=== PATIENT | male | born 1960 | race Caucasian/White ===

== ENCOUNTER 2021-04-22 12:50 | Inpatient (IN) ==
[2021-04-22] MEDS ORDERED: 0.9 % Sodium Chloride 1,000 ML IVC ONE (13:01)
[2021-04-22] MEDS ORDERED: Isovue-370 500 ML BOTTLE IVP ONE (13:03)
[2021-04-22] MEDS ORDERED: *HR* HYDROmorphone (PF) 1 MG/ML SYRINGE IVP ONE ×2 (13:03→15:14)
[2021-04-22] MEDS ORDERED: Ondansetron 4 MG/2 ML VIAL IVP ONE (13:03)
[2021-04-22 13:18] LABS: Basophils % 0.2 %; Eosinophils % 0.2 %; Hematocrit 45.9 % (37.5-50.1); Immature Granulocytes % 0.3 % (0-4); Lymphocytes # 1.3 K/mcL (0.6-4.6); Lymphocytes % 6.6 %; Mean Corpuscular HGB Conc 32.7 g/dL (31.6-35.5); Mean Corpuscular Hemoglobin 30.7 pg (28.0-33.3); Mean Corpuscular Volume 94.1 fL (83.0-100.0); Mean Platelet Volume 10.1 fL (9.4-12.4); Monocytes # 0.8 K/mcL (0.0-1.3); Monocytes % 4.2 %; Neutrophils # 17.4 K/mcL (1.6-8.9); Platelet Count 338 K/mcL (140-400); Red Blood Count 4.88 M/mcL (4.19-5.50); Red Cell Distribution Width 13.9 % (11.5-14.5); Segmented Neutrophils % 88.5 %; White Blood Count 19.6 K/mcL (4.3-11.1)
[2021-04-22 13:26] LABS: Prothrombin Time 11.5 Seconds (9.4-12.1)
[2021-04-22 13:28] LABS: Activated Partial Thrombo Time 32.5 Seconds (26.0-36.0)
[2021-04-22 14:14] LABS: Alanine Aminotransferase 414 Units/L (7-52); Albumin 4.4 g/dL (3.5-5.7); Albumin/Globulin Ratio 1.2 (1.1-2.2); Alkaline Phosphatase 185 Units/L (34-104); Aspartate Amino Transferase 406 Units/L (13-39); BUN/Creatinine Ratio 13 (6-26); Bilirubin,Direct 1.6 mg/dL (0.0-0.2); Bilirubin,Indirect 0.7 mg/dL (0.0-1.0); Bilirubin,Total 2.3 mg/dL (0.3-1.0); Blood Urea Nitrogen 13 mg/dL (8-23); Calcium 9.7 mg/dL (8.6-10.3); Carbon Dioxide 30 mEq/L (23-29); Chloride 95 mEq/L (98-107); Globulin 3.6 g/dL (2.4-3.5); Glucose 176 mg/dL (70-105); Lipase > 1800 Units/L (11-82); Osmolality,Calculated 286 (280-300); Potassium 3.8 mEq/L (3.5-5.1); Sodium 136 mEq/L (136-145); Troponin I < 0.03 ng/mL (< 0.04); eGFR For African Americans > 60 (> 60); eGFR For Non-African Americans > 60 (> 60)
[2021-04-22] MEDS ORDERED: 0.9 % Sodium Chloride 1,000 ML IV ONE (14:32)
[2021-04-22] MEDS ORDERED: Naloxone 0.4 MG/ML INJ IVP PRN (15:25)
[2021-04-22] MEDS: Piperacillin/Tazobactam 3.375 GM in 0.9 % Sodium Chloride Mini Bag 100 ML IVPB SCH ×2 (16:12→19:31)
[2021-04-22 16:50] LABS: Amorphous Sediment,Urine Moderate per hpf (None-Few); Bacteria,Urine Few per hpf (None-Few); Bilirubin,Urine Negative (Negative); Blood,Urine Negative (Negative); Clarity,Urine Turbid (Clear); Color,Urine Yellow (Yellow); Glucose,Urine (UA) Normal (Normal); Ketones,Urine Negative (Negative); Leukocyte Esterase,Urine Negative (Negative); Mucus,Urine Few per lpf (None-Few); Nitrite,Urine Negative (Negative); PH,Urine 7.5 pH Units (5.0-8.0); Protein,Urine Trace mg/dL (Neg-Trace); RBC,Urine 0-3 per hpf (0-3); Specific Gravity,Urine > 1.030 (1.010-1.025); Urobilinogen,Urine Normal (Normal); WBC,Urine 0-3 per hpf (0-3)
[2021-04-22] MEDS: Ringers Solution, Lactated 1,000 ML IVC SCH ×2 (19:30→19:38)
[2021-04-22] MEDS: *HR* HYDROmorphone (PF) 1 MG/ML SYRINGE IVP PRN (19:37)
[2021-04-22] MEDS ORDERED: Ibuprofen 400 MG TABLET PO ONE (21:26)
[2021-04-22] MEDS ORDERED: *HR* OxyCODONE Oral Soln 5 MG/5 ML UD.LIQ GTUBE ONE (21:51)
[2021-04-23] MEDS: Piperacillin/Tazobactam 3.375 GM in 0.9 % Sodium Chloride Mini Bag 100 ML IVPB SCH ×4 (00:02→23:39)
[2021-04-23] MEDS: *HR* HYDROmorphone (PF) 1 MG/ML SYRINGE IVP PRN ×4 (00:16→20:06)
[2021-04-23 03:44] LABS: Basophils % 0.1 %; Hematocrit 39.8 % (37.5-50.1); Immature Granulocytes % 0.5 % (0-4); Lymphocytes # 0.5 K/mcL (0.6-4.6); Lymphocytes % 2.8 %; Mean Corpuscular HGB Conc 33.4 g/dL (31.6-35.5); Mean Corpuscular Hemoglobin 30.8 pg (28.0-33.3); Mean Corpuscular Volume 92.1 fL (83.0-100.0); Mean Platelet Volume 10.5 fL (9.4-12.4); Monocytes # 0.7 K/mcL (0.0-1.3); Monocytes % 3.5 %; Neutrophils # 17.4 K/mcL (1.6-8.9); Platelet Count 269 K/mcL (140-400); Red Blood Count 4.32 M/mcL (4.19-5.50); Red Cell Distribution Width 14.1 % (11.5-14.5); Segmented Neutrophils % 93.1 %; White Blood Count 18.7 K/mcL (4.3-11.1)
[2021-04-23 03:46] LABS: Hemoglobin 13.3 g/dL (12.9-16.9)
[2021-04-23 03:56] LABS: INR 1.1; Prothrombin Time 12.1 Seconds (9.4-12.1)
[2021-04-23 04:01] LABS: Alanine Aminotransferase 287 Units/L (7-52); Albumin 3.9 g/dL (3.5-5.7); Albumin/Globulin Ratio 1.3 (1.1-2.2); Alkaline Phosphatase 138 Units/L (34-104); Aspartate Amino Transferase 183 Units/L (13-39); BUN/Creatinine Ratio 15 (6-26); Bilirubin,Total 0.9 mg/dL (0.3-1.0); Blood Urea Nitrogen 12 mg/dL (8-23); Calcium 8.4 mg/dL (8.6-10.3); Carbon Dioxide 24 mEq/L (23-29); Chloride 102 mEq/L (98-107); Globulin 2.9 g/dL (2.4-3.5); Glucose 140 mg/dL (70-105); Osmolality,Calculated 284 (280-300); Potassium 3.6 mEq/L (3.5-5.1); Sodium 136 mEq/L (136-145); Total Protein 6.8 g/dL (6.4-8.9); eGFR For African Americans > 60 (> 60); eGFR For Non-African Americans > 60 (> 60)
[2021-04-23] MEDS: *HR* Enoxaparin 40 MG/0.4 ML SYRINGE SQ SCH (05:05)
[2021-04-23] MEDS ORDERED: *HR* OxyCODONE Oral Soln 5 MG/5 ML UD.LIQ GTUBE PRN ×2 (07:30→13:24)
[2021-04-23] MEDS ORDERED: *HR* HYDROmorphone (PF) 1 MG/ML SYRINGE IVP ONE (07:30)
[2021-04-23] MEDS ORDERED: Ringers Solution, Lactated 1,000 ML IVC SCH (11:38)
[2021-04-23] MEDS: Ringers Solution, Lactated 1,000 ML IVC SCH ×2 (11:40→11:41)
[2021-04-23] MEDS ORDERED: *HR* LORazepam 2 MG/ML VIAL IVP ONE (13:22)
[2021-04-23] MEDS: 0.9 % Sodium Chloride 1,000 ML IVC SCH ×2 (16:26→23:20)
[2021-04-23] MEDS: Ondansetron 4 MG/2 ML VIAL IVP PRN (20:19)
[2021-04-23] MEDS: *HR* HYDROmorphone 2 MG/ML SYRINGE IVP PRN (23:32)
[2021-04-24] MEDS: *HR* HYDROmorphone 2 MG/ML SYRINGE IVP PRN ×8 (01:34→23:19)
[2021-04-24] MEDS ORDERED: Morphine Sulfate 2 MG/ML SYRINGE IVP ONE (03:50)
[2021-04-24] MEDS: 0.9 % Sodium Chloride 1,000 ML IVC SCH ×4 (04:04→21:10)
[2021-04-24] MEDS: *HR* Enoxaparin 40 MG/0.4 ML SYRINGE SQ SCH (05:24)
[2021-04-24 07:35] LABS: Basophils % 0.1 %; Hematocrit 37.5 % (37.5-50.1); Hemoglobin 12.3 g/dL (12.9-16.9); Immature Granulocytes % 0.6 % (0-4); Lymphocytes # 0.9 K/mcL (0.6-4.6); Lymphocytes % 3.5 %; Mean Corpuscular HGB Conc 32.8 g/dL (31.6-35.5); Mean Corpuscular Hemoglobin 30.5 pg (28.0-33.3); Mean Corpuscular Volume 93.1 fL (83.0-100.0); Mean Platelet Volume 10.6 fL (9.4-12.4); Monocytes % 5.4 %; Neutrophils # 22.6 K/mcL (1.6-8.9); Platelet Count 276 K/mcL (140-400); Red Blood Count 4.03 M/mcL (4.19-5.50); Red Cell Distribution Width 14.8 % (11.5-14.5); Segmented Neutrophils % 90.4 %
[2021-04-24 07:51] LABS: Monocytes # 1.4 K/mcL (0.0-1.3)
[2021-04-24 08:11] LABS: Alanine Aminotransferase 204 Units/L (7-52); Albumin 3.6 g/dL (3.5-5.7); Albumin/Globulin Ratio 1.2 (1.1-2.2); Alkaline Phosphatase 113 Units/L (34-104); Aspartate Amino Transferase 108 Units/L (13-39); BUN/Creatinine Ratio 20 (6-26); Blood Urea Nitrogen 13 mg/dL (8-23); Calcium 7.3 mg/dL (8.6-10.3); Carbon Dioxide 20 mEq/L (23-29); Chloride 104 mEq/L (98-107); Glucose 106 mg/dL (70-105); Lipase 165 Units/L (11-82); Osmolality,Calculated 281 (280-300); Potassium 3.3 mEq/L (3.5-5.1); Sodium 135 mEq/L (136-145); Total Protein 6.6 g/dL (6.4-8.9); eGFR For African Americans > 60 (> 60); eGFR For Non-African Americans > 60 (> 60)
[2021-04-24] MEDS: Piperacillin/Tazobactam 3.375 GM in 0.9 % Sodium Chloride Mini Bag 100 ML IVPB SCH ×3 (08:24→23:23)
[2021-04-24 08:28] LABS: Platelet Estimate Normal (Normal)
[2021-04-24] MEDS: Ondansetron 4 MG/2 ML VIAL IVP PRN (08:36)
[2021-04-24] MEDS: Levothyroxine Sodium 100 MCG VIAL IVP SCH (08:45)
[2021-04-24] MEDS: *HR* LORazepam 2 MG/ML VIAL IVP SCH ×3 (12:36→23:22)
[2021-04-25] MEDS: *HR* HYDROmorphone 2 MG/ML SYRINGE IVP PRN ×7 (01:21→20:13)
[2021-04-25] MEDS: 0.9 % Sodium Chloride 1,000 ML IVC SCH ×4 (01:21→16:51)
[2021-04-25 02:56] LABS: Basophils % 0.1 %
[2021-04-25 02:58] LABS: Hemoglobin 12.1 g/dL (12.9-16.9); Lymphocytes # 0.9 K/mcL (0.6-4.6); Lymphocytes % 3.4 %; Mean Corpuscular HGB Conc 34.6 g/dL (31.6-35.5); Mean Corpuscular Hemoglobin 31.6 pg (28.0-33.3); Mean Corpuscular Volume 91.4 fL (83.0-100.0); Mean Platelet Volume 10.3 fL (9.4-12.4); Monocytes # 1.5 K/mcL (0.0-1.3); Monocytes % 5.7 %; Neutrophils # 23.5 K/mcL (1.6-8.9); Platelet Count 258 K/mcL (140-400); Red Blood Count 3.83 M/mcL (4.19-5.50); Red Cell Distribution Width 14.6 % (11.5-14.5); Segmented Neutrophils % 89.8 %; White Blood Count 26.2 K/mcL (4.3-11.1)
[2021-04-25 03:04] LABS: Alanine Aminotransferase 156 Units/L (7-52); Albumin 3.4 g/dL (3.5-5.7); Albumin/Globulin Ratio 1.2 (1.1-2.2); Alkaline Phosphatase 98 Units/L (34-104); Aspartate Amino Transferase 73 Units/L (13-39); Bilirubin,Total 1.1 mg/dL (0.3-1.0); Blood Urea Nitrogen 9 mg/dL (8-23); Calcium 6.8 mg/dL (8.6-10.3); Carbon Dioxide 21 mEq/L (23-29); Chloride 101 mEq/L (98-107); Globulin 2.8 g/dL (2.4-3.5); Glucose 102 mg/dL (70-105); Osmolality,Calculated 277 (280-300); Potassium 2.8 mEq/L (3.5-5.1); Sodium 134 mEq/L (136-145); Total Protein 6.2 g/dL (6.4-8.9)
[2021-04-25 03:53] LABS: Platelet Estimate Normal (Normal)
[2021-04-25 04:10] LABS: BUN/Creatinine Ratio 17 (6-26); eGFR For African Americans > 60 (> 60); eGFR For Non-African Americans > 60 (> 60)
[2021-04-25] MEDS: *HR* LORazepam 2 MG/ML VIAL IVP SCH ×3 (06:05→19:25)
[2021-04-25] MEDS: *HR* Enoxaparin 40 MG/0.4 ML SYRINGE SQ SCH (06:39)
[2021-04-25] MEDS: Piperacillin/Tazobactam 3.375 GM in 0.9 % Sodium Chloride Mini Bag 100 ML IVPB SCH ×2 (11:35→16:53)
[2021-04-25] MEDS: Levothyroxine Sodium 100 MCG VIAL IVP SCH (11:35)
[2021-04-25] MEDS: Ondansetron 4 MG/2 ML VIAL IVP PRN (13:25)
[2021-04-25] MEDS: Potassium Chloride Elixir 20 MEQ/15 ML UDC GTUBE SCH ×3 (16:53→19:34)
[2021-04-25 21:19] LABS: Hematocrit 36.7 % (37.5-50.1); Hemoglobin 12.3 g/dL (12.9-16.9)
[2021-04-25] MEDS: Morphine Sulfate 2 MG/ML SYRINGE IVP PRN (22:48)
[2021-04-26] MEDS: Piperacillin/Tazobactam 3.375 GM in 0.9 % Sodium Chloride Mini Bag 100 ML IVPB SCH ×4 (00:06→23:28)
[2021-04-26] MEDS: Morphine Sulfate 2 MG/ML SYRINGE IVP PRN ×5 (01:04→20:01)
[2021-04-26] MEDS: *HR* LORazepam 2 MG/ML VIAL IVP SCH ×5 (01:05→23:28)
[2021-04-26] MEDS: Pantoprazole 40 MG in 0.9 % Sodium Chloride Mini Bag 100 ML IVC SCH ×6 (03:29→20:00)
[2021-04-26 05:19] LABS: Red Cell Distribution Width 14.2 % (11.5-14.5)
[2021-04-26 05:21] LABS: Basophils % 0.1 %; Hematocrit 34.8 % (37.5-50.1); Hemoglobin 11.7 g/dL (12.9-16.9); Immature Granulocytes % 1.1 % (0-4); Lymphocytes # 0.9 K/mcL (0.6-4.6); Lymphocytes % 3.2 %; Mean Corpuscular HGB Conc 33.6 g/dL (31.6-35.5); Mean Corpuscular Hemoglobin 30.5 pg (28.0-33.3); Mean Corpuscular Volume 90.9 fL (83.0-100.0); Mean Platelet Volume 9.9 fL (9.4-12.4); Monocytes # 2.2 K/mcL (0.0-1.3); Monocytes % 7.6 %; Neutrophils # 25.1 K/mcL (1.6-8.9); Platelet Count 283 K/mcL (140-400); Red Blood Count 3.83 M/mcL (4.19-5.50); White Blood Count 28.5 K/mcL (4.3-11.1)
[2021-04-26 05:31] LABS: Platelet Estimate Normal (Normal)
[2021-04-26 05:53] LABS: Alanine Aminotransferase 117 Units/L (7-52); Albumin 3.1 g/dL (3.5-5.7); Albumin/Globulin Ratio 1.1 (1.1-2.2); Alkaline Phosphatase 88 Units/L (34-104); Aspartate Amino Transferase 56 Units/L (13-39); BUN/Creatinine Ratio 19 (6-26); Bilirubin,Total 1.1 mg/dL (0.3-1.0); Blood Urea Nitrogen 15 mg/dL (8-23); Calcium 6.6 mg/dL (8.6-10.3); Carbon Dioxide 23 mEq/L (23-29); Chloride 101 mEq/L (98-107); Globulin 2.8 g/dL (2.4-3.5); Glucose 134 mg/dL (70-105); Lipase 25 Units/L (11-82); Osmolality,Calculated 287 (280-300); Potassium 2.4 mEq/L (3.5-5.1); Sodium 137 mEq/L (136-145); Total Protein 5.9 g/dL (6.4-8.9); eGFR For African Americans > 60 (> 60); eGFR For Non-African Americans > 60 (> 60)
[2021-04-26] MEDS: *HR* Enoxaparin 40 MG/0.4 ML SYRINGE SQ SCH (06:12)
[2021-04-26] MEDS: *HR* OxyCODONE Oral Soln 5 MG/5 ML UD.LIQ PO PRN ×2 (08:41→13:36)
[2021-04-26] MEDS: Levothyroxine Sodium 100 MCG VIAL IVP SCH (08:42)
[2021-04-26] MEDS ORDERED: *HR* LORazepam 2 MG/ML VIAL IVP ONE (10:28)
[2021-04-26] MEDS ORDERED: 0.9 % Sodium Chloride 1,000 ML IV ONE ×2 (10:32→12:18)
[2021-04-26] MEDS ORDERED: Isovue-370 500 ML BOTTLE IVP ONE (10:48)
[2021-04-26 11:22] LABS: Basophils % 0.1 %; Immature Granulocytes % 1.1 % (0-4); Lymphocytes % 4.2 %
[2021-04-26 11:24] LABS: Hematocrit 28.6 % (37.5-50.1); Hemoglobin 9.5 g/dL (12.9-16.9); Lymphocytes # 1.1 K/mcL (0.6-4.6); Mean Corpuscular HGB Conc 33.2 g/dL (31.6-35.5); Mean Corpuscular Hemoglobin 31.3 pg (28.0-33.3); Mean Corpuscular Volume 94.1 fL (83.0-100.0); Mean Platelet Volume 10.4 fL (9.4-12.4); Monocytes # 2.5 K/mcL (0.0-1.3); Monocytes % 9.1 %; Neutrophils # 23.1 K/mcL (1.6-8.9); Nucleated Red Blood Cells 0.1 /100 WBC (0); Platelet Count 279 K/mcL (140-400); Red Blood Count 3.04 M/mcL (4.19-5.50); Red Cell Distribution Width 14.5 % (11.5-14.5); Segmented Neutrophils % 85.5 %
[2021-04-26] MEDS ORDERED: Potassium Effervescent 25 MEQ TABLET.EFF GTUBE ONE (11:30)
[2021-04-26 12:08] LABS: Platelet Estimate Normal (Normal)
[2021-04-26 13:56] LABS: Hematocrit 25.9 % (37.5-50.1); Hemoglobin 8.7 g/dL (12.9-16.9)
[2021-04-26] MEDS: Ringers Solution, Lactated 1,000 ML IVC SCH ×3 (14:44→20:10)
[2021-04-26] MEDS ORDERED: Magic Mouthwash 10 ML UD Cup PO PRN (21:19)
[2021-04-26] MEDS: Ondansetron 4 MG/2 ML VIAL IVP PRN (21:40)
[2021-04-27 00:48] LABS: Basophils % 0.1 %; Hemoglobin 8.1 g/dL (12.9-16.9); Immature Granulocytes % 0.5 % (0-4); Lymphocytes # 0.8 K/mcL (0.6-4.6); Lymphocytes % 4.9 %; Mean Corpuscular HGB Conc 35.2 g/dL (31.6-35.5); Mean Corpuscular Hemoglobin 32.1 pg (28.0-33.3); Mean Corpuscular Volume 91.3 fL (83.0-100.0); Mean Platelet Volume 10.3 fL (9.4-12.4); Monocytes # 1.6 K/mcL (0.0-1.3); Monocytes % 9.5 %; Neutrophils # 14.2 K/mcL (1.6-8.9); Platelet Count 226 K/mcL (140-400); Red Blood Count 2.52 M/mcL (4.19-5.50); Red Cell Distribution Width 14.3 % (11.5-14.5); White Blood Count 16.7 K/mcL (4.3-11.1)
[2021-04-27 01:07] LABS: BUN/Creatinine Ratio 43 (6-26); Blood Urea Nitrogen 36 mg/dL (8-23); Calcium 6.9 mg/dL (8.6-10.3); Carbon Dioxide 23 mEq/L (23-29); Chloride 113 mEq/L (98-107); Glucose 121 mg/dL (70-105); Lipase 22 Units/L (11-82); Osmolality,Calculated 308 (280-300); Potassium 2.9 mEq/L (3.5-5.1); Sodium 144 mEq/L (136-145); eGFR For African Americans > 60 (> 60); eGFR For Non-African Americans > 60 (> 60)
[2021-04-27] MEDS: Ringers Solution, Lactated 1,000 ML IVC SCH ×3 (01:26→18:57)
[2021-04-27] MEDS: Pantoprazole 40 MG in 0.9 % Sodium Chloride Mini Bag 100 ML IVC SCH ×5 (01:26→22:22)
[2021-04-27] MEDS ORDERED: Potassium Effervescent 25 MEQ TABLET.EFF GTUBE ONE ×2 (02:48→10:20)
[2021-04-27 05:30] LABS: Hematocrit 24.5 % (37.5-50.1)
[2021-04-27] MEDS: *HR* LORazepam 2 MG/ML VIAL IVP SCH ×5 (05:50→20:55)
[2021-04-27] MEDS: Piperacillin/Tazobactam 3.375 GM in 0.9 % Sodium Chloride Mini Bag 100 ML IVPB SCH ×2 (09:05→18:57)
[2021-04-27] MEDS: Levothyroxine Sodium 100 MCG VIAL IVP SCH (10:48)
[2021-04-27] MEDS ORDERED: *HR* Propofol 200 MG/20 ML VIAL IVP ONE (12:03)
[2021-04-27] MEDS ORDERED: *HR* Midazolam HCl 2 MG/2 ML VIAL ONE (12:03)
[2021-04-27] MEDS ORDERED: *HR* Succinylcholine 200 MG/10 ML VIAL IVP ONE (12:04)
[2021-04-27] MEDS ORDERED: Lidocaine/EPI 1:100k 1% 50 ML VIAL ONE (12:13)
[2021-04-27] MEDS ORDERED: Oxymetazoline Nasal Spray Bottle 30ML NS ONE (12:34)
[2021-04-27] MEDS ORDERED: Lidocaine -MPF 4% 5 ML AMPUL ONE (12:47)
[2021-04-27] MEDS ORDERED: Lidocaine -MPF 2% 5 ML VIAL ONE (13:00)
[2021-04-27] MEDS ORDERED: *HR* FentaNYL (PF) 100 MCG/2 ML VIAL ONE ×2 (13:12→14:05)
[2021-04-27] MEDS ORDERED: *HR* Rocuronium Bromide 50 MG/5 ML VIAL ONE (13:30)
[2021-04-27] MEDS ORDERED: Phentolamine Mesylate 5 MG VIAL IJ ONE (13:45)
[2021-04-27] MEDS ORDERED: Ondansetron 4 MG/2 ML VIAL ONE (14:11)
[2021-04-27] MEDS ORDERED: Sugammadex Sodium 200 MG/2 ML VIAL IV ONE (14:11)
[2021-04-27 16:26] LABS: Basophils % 0.1 %; Hematocrit 19.6 % (37.5-50.1); Hemoglobin 6.5 g/dL (12.9-16.9); Immature Granulocytes % 0.8 % (0-4); Lymphocytes # 0.7 K/mcL (0.6-4.6); Lymphocytes % 4.3 %; Mean Corpuscular HGB Conc 33.2 g/dL (31.6-35.5); Mean Corpuscular Volume 93.3 fL (83.0-100.0); Mean Platelet Volume 11.1 fL (9.4-12.4); Monocytes # 0.9 K/mcL (0.0-1.3); Monocytes % 5.5 %; Platelet Count 110 K/mcL (140-400); Red Cell Distribution Width 14.9 % (11.5-14.5); Segmented Neutrophils % 89.3 %; White Blood Count 16.8 K/mcL (4.3-11.1)
[2021-04-27 16:35] LABS: BUN/Creatinine Ratio 25 (6-26); Blood Urea Nitrogen 21 mg/dL (8-23); Calcium 6.7 mg/dL (8.6-10.3); Carbon Dioxide 26 mEq/L (23-29); Chloride 111 mEq/L (98-107); Glucose 109 mg/dL (70-105); Magnesium 1.5 mg/dL (1.6-2.6); Osmolality,Calculated 306 (280-300); Phosphorous 1.5 mg/dL (2.7-4.5); Sodium 146 mEq/L (136-145); Triglycerides 109 mg/dL (< 150); eGFR For African Americans > 60 (> 60); eGFR For Non-African Americans > 60 (> 60)
[2021-04-27 16:40] LABS: Troponin I 0.08 ng/mL (< 0.04)
[2021-04-27] MEDS ORDERED: methylPREDNISolone 125 MG/2 ML VIAL IVP ONE (19:40)
[2021-04-27] MEDS ORDERED: *HR* Metoprolol 5 MG/5 ML VIAL IVP ONE (19:42)
[2021-04-27] MEDS: Morphine Sulfate 2 MG/ML SYRINGE IVP PRN (19:47)
[2021-04-27 20:26] LABS: Mean Platelet Volume 10.2 fL (9.4-12.4)
[2021-04-27 20:28] LABS: Hematocrit 20.4 % (37.5-50.1); Mean Corpuscular HGB Conc 34.3 g/dL (31.6-35.5); Mean Corpuscular Volume 93.2 fL (83.0-100.0); Monocytes # 1.6 K/mcL (0.0-1.3); Nucleated Red Blood Cells 0.2 /100 WBC (0); Platelet Count 269 K/mcL (140-400); Red Blood Count 2.19 M/mcL (4.19-5.50); White Blood Count 26.4 K/mcL (4.3-11.1)
[2021-04-27 20:29] LABS: VBG HCO3 25 mEq/L (21-27); VBG PCO2 46 mmHg (41-51); VBG PH 7.35 pH Units (7.32-7.42); VBG PO2 171 mmHg (25-50)
[2021-04-27 20:44] LABS: Alanine Aminotransferase 83 Units/L (7-52); Albumin 2.8 g/dL (3.5-5.7); Albumin/Globulin Ratio 1.1 (1.1-2.2); Alkaline Phosphatase 73 Units/L (34-104); Aspartate Amino Transferase 68 Units/L (13-39); BUN/Creatinine Ratio 25 (6-26); Bilirubin,Total 0.6 mg/dL (0.3-1.0); Blood Urea Nitrogen 20 mg/dL (8-23); Calcium 6.9 mg/dL (8.6-10.3); Carbon Dioxide 27 mEq/L (23-29); Chloride 111 mEq/L (98-107); Globulin 2.5 g/dL (2.4-3.5); Glucose 132 mg/dL (70-105); Magnesium 1.6 mg/dL (1.6-2.6); Osmolality,Calculated 308 (280-300); Phosphorous 2.2 mg/dL (2.7-4.5); Sodium 147 mEq/L (136-145); Total Protein 5.3 g/dL (6.4-8.9); eGFR For African Americans > 60 (> 60); eGFR For Non-African Americans > 60 (> 60)
[2021-04-27 20:53] LABS: Hypochromasia Present (Not Present); Large Platelets Present (Not Present); Lymphocytes # 2.1 K/mcL (0.6-4.6); Macrocytosis Present (Not Present); Neutrophils # 22.7 K/mcL (1.6-8.9); Platelet Estimate Normal (Normal); Polychromasia 1+ (Not Present)
[2021-04-27] MEDS: Acetylcysteine 10% 2 ML INHSOL IH SCH ×2 (21:08→21:09)
[2021-04-27] MEDS: Ipratropium/Albuterol Neb 3 ML IH SCH (21:09)
[2021-04-27 21:21] LABS: ABG Base Excess 1 mEq/L (-2 to 3); ABG HCO3 26 mEq/L (21-27); ABG Oxygen Saturation 99 % (95-98); ABG PCO2 44 mmHg (35-45); ABG PH 7.38 pH Units (7.32-7.45); ABG PO2 133 mmHg (85-104); ABG TCO2 28 mEq/L (20-26); Blood Gas Modality ASSIST CONTROL; Blood Gas VT 400 cc
[2021-04-27] MEDS ORDERED: 0.9 % Sodium Chloride 500 ML ONE (22:02)
[2021-04-28] MEDS: Ipratropium/Albuterol Neb 3 ML IH SCH ×6 (00:41→20:50)
[2021-04-28] MEDS: *HR* LORazepam 2 MG/ML VIAL IVP SCH ×4 (01:04→18:19)
[2021-04-28] MEDS: Piperacillin/Tazobactam 3.375 GM in 0.9 % Sodium Chloride Mini Bag 100 ML IVPB SCH ×3 (01:05→15:30)
[2021-04-28] MEDS: Ringers Solution, Lactated 1,000 ML IVC SCH (01:34)
[2021-04-28] MEDS ORDERED: Potassium Phosphate 44 MEQ in 0.9 % Sodium Chloride 250 ML IVPB ONE (03:15)
[2021-04-28] MEDS: Pantoprazole 40 MG in 0.9 % Sodium Chloride Mini Bag 100 ML IVC SCH ×4 (04:00→19:47)
[2021-04-28] MEDS: Calcium Gluconate 1gm/50mL 1 GM/50 ML BAG IVPB SCH ×2 (04:03→04:42)
[2021-04-28] MEDS: Saliva Stimulant 44.3ml BOTTLE PO SCH ×11 (04:04→22:34)
[2021-04-28] MEDS: Acetylcysteine 10% 2 ML INHSOL IH SCH ×4 (04:35→20:51)
[2021-04-28] MEDS: Potassium Chloride 20 MEQ in D5% in Water 1,000 ML IVC SCH ×2 (05:06→14:26)
[2021-04-28] MEDS: Levothyroxine Sodium 100 MCG VIAL IVP SCH (07:26)
[2021-04-28] MEDS: Chlorhexidine Rinse 15 ML MOUTHWASH MM SCH ×2 (08:04→19:48)
[2021-04-28] MEDS: Morphine Sulfate 2 MG/ML SYRINGE IVP PRN ×5 (08:04→19:47)
[2021-04-28] MEDS: Fluconazole 400 MG/200 ML 400 MG/200 ML BAG IVPB SCH (12:14)
[2021-04-28 14:56] LABS: Hemoglobin 6.4 g/dL (12.9-16.9); Immature Granulocytes % 0.8 % (0-4); Lymphocytes # 0.4 K/mcL (0.6-4.6); Lymphocytes % 3.2 %; Mean Corpuscular HGB Conc 33.7 g/dL (31.6-35.5); Mean Corpuscular Hemoglobin 31.5 pg (28.0-33.3); Mean Corpuscular Volume 93.6 fL (83.0-100.0); Mean Platelet Volume 10.3 fL (9.4-12.4); Monocytes # 0.5 K/mcL (0.0-1.3); Monocytes % 4.5 %; Neutrophils # 10.5 K/mcL (1.6-8.9); Nucleated Red Blood Cells 0.2 /100 WBC (0); Platelet Count 190 K/mcL (140-400); Red Blood Count 2.03 M/mcL (4.19-5.50); Red Cell Distribution Width 14.8 % (11.5-14.5); Segmented Neutrophils % 91.5 %
[2021-04-28 14:57] LABS: White Blood Count 11.5 K/mcL (4.3-11.1)
[2021-04-28 15:17] LABS: BUN/Creatinine Ratio 22 (6-26); Blood Urea Nitrogen 16 mg/dL (8-23); Calcium 6.7 mg/dL (8.6-10.3); Carbon Dioxide 28 mEq/L (23-29); Chloride 107 mEq/L (98-107); Glucose 158 mg/dL (70-105); Lipase 17 Units/L (11-82); Osmolality,Calculated 302 (280-300); Potassium 2.5 mEq/L (3.5-5.1); Sodium 144 mEq/L (136-145); eGFR For African Americans > 60 (> 60); eGFR For Non-African Americans > 60 (> 60)
[2021-04-28] MEDS ORDERED: 0.9 % Sodium Chloride 250 ML ONE (15:27)
[2021-04-28] MEDS ORDERED: Potassium Effervescent 25 MEQ TABLET.EFF GTUBE ONE (16:02)
[2021-04-28] MEDS ORDERED: 0.9 % Sodium Chloride 250 ML IVC SCH (16:15)
[2021-04-28] MEDS: Potassium Chloride 40 MEQ in D5% in Water 1,000 ML IVC SCH (17:25)
[2021-04-28] MEDS: Ondansetron 4 MG/2 ML VIAL IVP PRN (18:18)
[2021-04-28] MEDS: Nicotine 21 MG PATCH.TD24 TD SCH (19:50)
[2021-04-28 20:44] LABS: Hematocrit 22.7 % (37.5-50.1); Hemoglobin 7.7 g/dL (12.9-16.9)
[2021-04-29] MEDS: Piperacillin/Tazobactam 3.375 GM in 0.9 % Sodium Chloride Mini Bag 100 ML IVPB SCH ×3 (00:15→18:43)
[2021-04-29] MEDS: Pantoprazole 40 MG in 0.9 % Sodium Chloride Mini Bag 100 ML IVC SCH ×5 (00:16→21:05)
[2021-04-29] MEDS: *HR* LORazepam 2 MG/ML VIAL IVP SCH ×4 (00:16→18:45)
[2021-04-29] MEDS: Saliva Stimulant 44.3ml BOTTLE PO SCH ×11 (00:17→22:55)
[2021-04-29] MEDS: Ipratropium/Albuterol Neb 3 ML IH SCH ×7 (00:37→23:33)
[2021-04-29] MEDS: Potassium Chloride 40 MEQ in D5% in Water 1,000 ML IVC SCH (03:00)
[2021-04-29] MEDS: Acetylcysteine 10% 2 ML INHSOL IH SCH ×4 (03:39→20:31)
[2021-04-29] MEDS ORDERED: 0.9 % Sodium Chloride 500 ML IVC ONE (03:39)
[2021-04-29 06:48] LABS: Hematocrit 22.7 % (37.5-50.1); Hemoglobin 7.8 g/dL (12.9-16.9); Immature Granulocytes % 0.9 % (0-4); Lymphocytes # 0.6 K/mcL (0.6-4.6); Lymphocytes % 4.8 %; Mean Corpuscular HGB Conc 34.4 g/dL (31.6-35.5); Mean Corpuscular Hemoglobin 31.6 pg (28.0-33.3); Mean Corpuscular Volume 91.9 fL (83.0-100.0); Mean Platelet Volume 10.5 fL (9.4-12.4); Monocytes # 0.7 K/mcL (0.0-1.3); Monocytes % 5.8 %; Neutrophils # 11.2 K/mcL (1.6-8.9); Nucleated Red Blood Cells 0.6 /100 WBC (0); Platelet Count 170 K/mcL (140-400); Red Blood Count 2.47 M/mcL (4.19-5.50); Red Cell Distribution Width 14.8 % (11.5-14.5); Segmented Neutrophils % 88.5 %; White Blood Count 12.7 K/mcL (4.3-11.1)
[2021-04-29 07:26] LABS: BUN/Creatinine Ratio 22 (6-26); Blood Urea Nitrogen 15 mg/dL (8-23); Calcium 6.6 mg/dL (8.6-10.3); Carbon Dioxide 28 mEq/L (23-29); Chloride 106 mEq/L (98-107); Glucose 217 mg/dL (70-105); Lipase 43 Units/L (11-82); Osmolality,Calculated 295 (280-300); Potassium 3.2 mEq/L (3.5-5.1); Sodium 139 mEq/L (136-145); eGFR For African Americans > 60 (> 60); eGFR For Non-African Americans > 60 (> 60)
[2021-04-29] MEDS ORDERED: Potassium Effervescent 25 MEQ TABLET.EFF GTUBE ONE (08:17)
[2021-04-29] MEDS: Nicotine 21 MG PATCH.TD24 TD SCH (10:58)
[2021-04-29] MEDS: Chlorhexidine Rinse 15 ML MOUTHWASH MM SCH ×2 (10:59→21:06)
[2021-04-29] MEDS: Fluconazole 400 MG/200 ML 400 MG/200 ML BAG IVPB SCH (11:06)
[2021-04-29] MEDS: Levothyroxine Sodium 100 MCG VIAL IVP SCH (11:22)
[2021-04-29] MEDS: Morphine Sulfate 2 MG/ML SYRINGE IVP PRN ×3 (11:48→18:44)
[2021-04-29] MEDS: Ondansetron 4 MG/2 ML VIAL IVP PRN (16:05)
[2021-04-30] MEDS: Piperacillin/Tazobactam 3.375 GM in 0.9 % Sodium Chloride Mini Bag 100 ML IVPB SCH ×4 (00:25→23:10)
[2021-04-30] MEDS: *HR* LORazepam 2 MG/ML VIAL IVP SCH ×5 (00:26→23:09)
[2021-04-30] MEDS: Saliva Stimulant 44.3ml BOTTLE PO SCH ×11 (00:34→23:21)
[2021-04-30] MEDS: Pantoprazole 40 MG in 0.9 % Sodium Chloride Mini Bag 100 ML IVC SCH ×5 (02:10→23:09)
[2021-04-30] MEDS: Ipratropium/Albuterol Neb 3 ML IH SCH ×6 (04:06→22:47)
[2021-04-30] MEDS: Acetylcysteine 10% 2 ML INHSOL IH SCH ×4 (04:06→20:04)
[2021-04-30 06:26] LABS: Basophils % 0.1 %; Hematocrit 28.1 % (37.5-50.1); Hemoglobin 9.2 g/dL (12.9-16.9); Immature Granulocytes % 1.4 % (0-4); Lymphocytes # 0.8 K/mcL (0.6-4.6); Mean Corpuscular HGB Conc 32.7 g/dL (31.6-35.5); Mean Corpuscular Hemoglobin 30.4 pg (28.0-33.3); Mean Corpuscular Volume 92.7 fL (83.0-100.0); Mean Platelet Volume 10.3 fL (9.4-12.4); Monocytes # 0.8 K/mcL (0.0-1.3); Monocytes % 3.8 %; Neutrophils # 18.5 K/mcL (1.6-8.9); Nucleated Red Blood Cells 0.3 /100 WBC (0); Platelet Count 211 K/mcL (140-400); Red Blood Count 3.03 M/mcL (4.19-5.50); Segmented Neutrophils % 90.7 %
[2021-04-30 06:31] LABS: White Blood Count 20.4 K/mcL (4.3-11.1)
[2021-04-30 06:45] LABS: BUN/Creatinine Ratio 14 (6-26); Blood Urea Nitrogen 10 mg/dL (8-23); Calcium 6.8 mg/dL (8.6-10.3); Carbon Dioxide 28 mEq/L (23-29); Chloride 100 mEq/L (98-107); Glucose 148 mg/dL (70-105); Lipase 37 Units/L (11-82); Osmolality,Calculated 278 (280-300); Potassium 3.9 mEq/L (3.5-5.1); Sodium 133 mEq/L (136-145); eGFR For African Americans > 60 (> 60); eGFR For Non-African Americans > 60 (> 60)
[2021-04-30] MEDS: Chlorhexidine Rinse 15 ML MOUTHWASH MM SCH ×2 (07:47→20:15)
[2021-04-30] MEDS: Nicotine 21 MG PATCH.TD24 TD SCH (07:47)
[2021-04-30] MEDS: Fluconazole 400 MG/200 ML 400 MG/200 ML BAG IVPB SCH (07:49)
[2021-04-30] MEDS: Levothyroxine Sodium 100 MCG VIAL IVP SCH (07:49)
[2021-04-30] MEDS: Morphine Sulfate 2 MG/ML SYRINGE IVP PRN (10:27)
[2021-04-30] MEDS: levoFLOXacin 500 MG/100 ML 500 MG/100 ML BAG IVPB SCH (12:29)
[2021-05-01 00:57] LABS: Basophils % 0.2 %; Eosinophils % 0.1 %; Hematocrit 27.8 % (37.5-50.1); Hemoglobin 9.4 g/dL (12.9-16.9); Immature Granulocytes % 1.1 % (0-4); Lymphocytes # 0.7 K/mcL (0.6-4.6); Lymphocytes % 2.9 %; Mean Corpuscular HGB Conc 33.8 g/dL (31.6-35.5); Mean Corpuscular Hemoglobin 31.4 pg (28.0-33.3); Mean Platelet Volume 10.2 fL (9.4-12.4); Monocytes # 0.8 K/mcL (0.0-1.3); Monocytes % 3.1 %; Neutrophils # 22.7 K/mcL (1.6-8.9); Platelet Count 228 K/mcL (140-400); Red Blood Count 2.99 M/mcL (4.19-5.50); Red Cell Distribution Width 14.9 % (11.5-14.5); Segmented Neutrophils % 92.6 %; White Blood Count 24.5 K/mcL (4.3-11.1)
[2021-05-01 00:59] LABS: Alanine Aminotransferase 121 Units/L (7-52); Albumin 2.6 g/dL (3.5-5.7); Albumin/Globulin Ratio 1.1 (1.1-2.2); Alkaline Phosphatase 80 Units/L (34-104); Aspartate Amino Transferase 38 Units/L (13-39); BUN/Creatinine Ratio 15 (6-26); Bilirubin,Total 0.4 mg/dL (0.3-1.0); Blood Urea Nitrogen 9 mg/dL (8-23); Calcium 7.3 mg/dL (8.6-10.3); Carbon Dioxide 25 mEq/L (23-29); Chloride 103 mEq/L (98-107); Globulin 2.3 g/dL (2.4-3.5); Glucose 142 mg/dL (70-105); Magnesium 1.6 mg/dL (1.6-2.6); Osmolality,Calculated 281 (280-300); Potassium 3.5 mEq/L (3.5-5.1); Sodium 135 mEq/L (136-145); Total Protein 4.9 g/dL (6.4-8.9); eGFR For African Americans > 60 (> 60); eGFR For Non-African Americans > 60 (> 60)
[2021-05-01 01:02] LABS: Basophils # 0.1 K/mcL (0.0-0.2)
[2021-05-01] MEDS: Saliva Stimulant 44.3ml BOTTLE PO SCH ×11 (02:15→23:02)
[2021-05-01] MEDS: Ipratropium/Albuterol Neb 3 ML IH SCH ×6 (03:34→23:50)
[2021-05-01] MEDS: Acetylcysteine 10% 2 ML INHSOL IH SCH ×4 (03:34→20:16)
[2021-05-01] MEDS: Pantoprazole 40 MG in 0.9 % Sodium Chloride Mini Bag 100 ML IVC SCH ×5 (05:07→21:43)
[2021-05-01] MEDS: *HR* LORazepam 2 MG/ML VIAL IVP SCH ×3 (05:08→17:08)
[2021-05-01] MEDS: Chlorhexidine Rinse 15 ML MOUTHWASH MM SCH ×2 (08:13→21:09)
[2021-05-01] MEDS: Piperacillin/Tazobactam 3.375 GM in 0.9 % Sodium Chloride Mini Bag 100 ML IVPB SCH ×2 (08:13→15:00)
[2021-05-01] MEDS: Levothyroxine Sodium 100 MCG VIAL IVP SCH (08:14)
[2021-05-01] MEDS: Fluconazole 400 MG/200 ML 400 MG/200 ML BAG IVPB SCH (08:15)
[2021-05-01] MEDS: Nicotine 21 MG PATCH.TD24 TD SCH (08:25)
[2021-05-01] MEDS: levoFLOXacin 500 MG/100 ML 500 MG/100 ML BAG IVPB SCH (11:38)
[2021-05-01] MEDS: Ondansetron 4 MG/2 ML VIAL IVP PRN (21:27)
[2021-05-02] MEDS: *HR* LORazepam 2 MG/ML VIAL IVP SCH ×4 (00:59→20:50)
[2021-05-02] MEDS: Piperacillin/Tazobactam 3.375 GM in 0.9 % Sodium Chloride Mini Bag 100 ML IVPB SCH ×2 (01:00→11:09)
[2021-05-02] MEDS: Saliva Stimulant 44.3ml BOTTLE PO SCH ×11 (01:06→22:20)
[2021-05-02 03:16] LABS: Basophils % 0.1 %; Eosinophils # 0.1 K/mcL (0.0-0.6); Eosinophils % 0.6 %; Hematocrit 28.2 % (37.5-50.1); Hemoglobin 9.3 g/dL (12.9-16.9); Immature Granulocytes % 0.7 % (0-4); Lymphocytes # 0.7 K/mcL (0.6-4.6); Lymphocytes % 3.2 %; Monocytes # 0.8 K/mcL (0.0-1.3); Monocytes % 3.8 %; Neutrophils # 19.2 K/mcL (1.6-8.9); Platelet Count 260 K/mcL (140-400); Red Cell Distribution Width 14.7 % (11.5-14.5); Segmented Neutrophils % 91.6 %; White Blood Count 20.9 K/mcL (4.3-11.1)
[2021-05-02 03:38] LABS: BUN/Creatinine Ratio 16 (6-26); Blood Urea Nitrogen 10 mg/dL (8-23); Calcium 7.8 mg/dL (8.6-10.3); Carbon Dioxide 25 mEq/L (23-29); Chloride 103 mEq/L (98-107); Glucose 104 mg/dL (70-105); Osmolality,Calculated 277 (280-300); Potassium 3.5 mEq/L (3.5-5.1); Sodium 134 mEq/L (136-145); eGFR For African Americans > 60 (> 60); eGFR For Non-African Americans > 60 (> 60)
[2021-05-02] MEDS: Acetylcysteine 10% 2 ML INHSOL IH SCH ×4 (03:55→20:18)
[2021-05-02] MEDS: Ipratropium/Albuterol Neb 3 ML IH SCH ×5 (03:55→20:18)
[2021-05-02] MEDS: Pantoprazole 40 MG in 0.9 % Sodium Chloride Mini Bag 100 ML IVC SCH ×4 (06:10→21:53)
[2021-05-02] MEDS: Fluconazole 400 MG/200 ML 400 MG/200 ML BAG IVPB SCH (10:57)
[2021-05-02] MEDS: Nicotine 21 MG PATCH.TD24 TD SCH (11:05)
[2021-05-02] MEDS: Levothyroxine Sodium 100 MCG VIAL IVP SCH (11:15)
[2021-05-02] MEDS: Chlorhexidine Rinse 15 ML MOUTHWASH MM SCH ×2 (11:16→20:50)
[2021-05-02] MEDS: *HR* HYDROmorphone (PF) 1 MG/ML SYRINGE IVP PRN ×3 (14:10→21:59)
[2021-05-02] MEDS ORDERED: 0.9 % Sodium Chloride 500 ML IV ONE (15:33)
[2021-05-02] MEDS: levoFLOXacin 500 MG/100 ML 500 MG/100 ML BAG IVPB SCH (16:13)
[2021-05-02] MEDS: Ondansetron 4 MG/2 ML VIAL IVP PRN (17:10)
[2021-05-03] MEDS: Ipratropium/Albuterol Neb 3 ML IH SCH ×7 (00:01→23:25)
[2021-05-03] MEDS: Piperacillin/Tazobactam 3.375 GM in 0.9 % Sodium Chloride Mini Bag 100 ML IVPB SCH ×4 (00:43→15:41)
[2021-05-03] MEDS: *HR* LORazepam 2 MG/ML VIAL IVP SCH ×4 (00:43→17:52)
[2021-05-03 01:43] LABS: Basophils % 0.1 %; Eosinophils # 0.1 K/mcL (0.0-0.6); Eosinophils % 0.8 %; Hematocrit 27.9 % (37.5-50.1); Hemoglobin 9.6 g/dL (12.9-16.9); Immature Granulocytes % 1.2 % (0-4); Lymphocytes # 0.7 K/mcL (0.6-4.6); Lymphocytes % 4.1 %; Mean Corpuscular HGB Conc 34.4 g/dL (31.6-35.5); Mean Corpuscular Hemoglobin 31.6 pg (28.0-33.3); Mean Corpuscular Volume 91.8 fL (83.0-100.0); Mean Platelet Volume 9.7 fL (9.4-12.4); Monocytes % 5.5 %; Neutrophils # 15.6 K/mcL (1.6-8.9); Platelet Count 370 K/mcL (140-400); Red Blood Count 3.04 M/mcL (4.19-5.50); Red Cell Distribution Width 14.2 % (11.5-14.5); Segmented Neutrophils % 88.3 %; White Blood Count 17.7 K/mcL (4.3-11.1)
[2021-05-03 02:01] LABS: Alanine Aminotransferase 83 Units/L (7-52); Albumin 2.8 g/dL (3.5-5.7); Alkaline Phosphatase 83 Units/L (34-104); Aspartate Amino Transferase 40 Units/L (13-39); BUN/Creatinine Ratio 20 (6-26); Bilirubin,Total 0.5 mg/dL (0.3-1.0); Blood Urea Nitrogen 13 mg/dL (8-23); Calcium 7.8 mg/dL (8.6-10.3); Carbon Dioxide 24 mEq/L (23-29); Chloride 97 mEq/L (98-107); Globulin 2.8 g/dL (2.4-3.5); Glucose 94 mg/dL (70-105); Osmolality,Calculated 270 (280-300); Potassium 3.6 mEq/L (3.5-5.1); Sodium 130 mEq/L (136-145); Total Protein 5.6 g/dL (6.4-8.9); eGFR For African Americans > 60 (> 60); eGFR For Non-African Americans > 60 (> 60)
[2021-05-03] MEDS: Saliva Stimulant 44.3ml BOTTLE PO SCH ×11 (03:06→20:35)
[2021-05-03] MEDS: Pantoprazole 40 MG in 0.9 % Sodium Chloride Mini Bag 100 ML IVC SCH ×3 (03:06→10:13)
[2021-05-03] MEDS: Acetylcysteine 10% 2 ML INHSOL IH SCH ×4 (03:38→19:56)
[2021-05-03] MEDS: Nicotine 21 MG PATCH.TD24 TD SCH (09:50)
[2021-05-03] MEDS: Fluconazole 400 MG/200 ML 400 MG/200 ML BAG IVPB SCH (09:50)
[2021-05-03] MEDS: Levothyroxine Sodium 100 MCG VIAL IVP SCH (09:51)
[2021-05-03] MEDS: Chlorhexidine Rinse 15 ML MOUTHWASH MM SCH ×2 (09:51→20:35)
[2021-05-03] MEDS: Ondansetron 4 MG/2 ML VIAL IVP PRN (15:41)
[2021-05-03] MEDS: *HR* HYDROmorphone (PF) 1 MG/ML SYRINGE IVP PRN ×2 (15:58→18:53)
[2021-05-03] MEDS ORDERED: NON-FORMULARY MEDICATION 1 EACH EACH (Oxycodone Hcl [Roxybond] 5 MG Tablet.Orl) PO PRN (16:25)
[2021-05-04] MEDS: Piperacillin/Tazobactam 3.375 GM in 0.9 % Sodium Chloride Mini Bag 100 ML IVPB SCH ×2 (00:26→09:15)
[2021-05-04] MEDS: *HR* LORazepam 2 MG/ML VIAL IVP SCH ×4 (00:27→18:25)
[2021-05-04 03:30] LABS: Basophils % 0.1 %; Eosinophils # 0.2 K/mcL (0.0-0.6); Eosinophils % 1.1 %; Hematocrit 29.1 % (37.5-50.1); Hemoglobin 9.5 g/dL (12.9-16.9); Immature Granulocytes % 0.6 % (0-4); Lymphocytes # 0.8 K/mcL (0.6-4.6); Lymphocytes % 5.5 %; Mean Corpuscular HGB Conc 32.6 g/dL (31.6-35.5); Mean Corpuscular Hemoglobin 30.2 pg (28.0-33.3); Mean Corpuscular Volume 92.4 fL (83.0-100.0); Mean Platelet Volume 9.9 fL (9.4-12.4); Monocytes # 0.9 K/mcL (0.0-1.3); Monocytes % 6.3 %; Neutrophils # 12.3 K/mcL (1.6-8.9); Platelet Count 432 K/mcL (140-400); Red Blood Count 3.15 M/mcL (4.19-5.50); Red Cell Distribution Width 14.2 % (11.5-14.5); Segmented Neutrophils % 86.4 %; White Blood Count 14.2 K/mcL (4.3-11.1)
[2021-05-04 03:36] LABS: Alanine Aminotransferase 100 Units/L (7-52); Albumin 2.8 g/dL (3.5-5.7); Albumin/Globulin Ratio 0.9 (1.1-2.2); Alkaline Phosphatase 91 Units/L (34-104); Aspartate Amino Transferase 58 Units/L (13-39); BUN/Creatinine Ratio 21 (6-26); Bilirubin,Total 0.4 mg/dL (0.3-1.0); Blood Urea Nitrogen 16 mg/dL (8-23); Calcium 8.4 mg/dL (8.6-10.3); Carbon Dioxide 26 mEq/L (23-29); Chloride 98 mEq/L (98-107); Globulin 3.1 g/dL (2.4-3.5); Glucose 163 mg/dL (70-105); Osmolality,Calculated 281 (280-300); Potassium 3.4 mEq/L (3.5-5.1); Sodium 133 mEq/L (136-145); Total Protein 5.9 g/dL (6.4-8.9); eGFR For African Americans > 60 (> 60); eGFR For Non-African Americans > 60 (> 60)
[2021-05-04] MEDS: Ipratropium/Albuterol Neb 3 ML IH SCH ×6 (03:55→23:32)
[2021-05-04] MEDS: Acetylcysteine 10% 2 ML INHSOL IH SCH ×2 (03:55→08:12)
[2021-05-04] MEDS: Saliva Stimulant 44.3ml BOTTLE PO SCH ×8 (04:52→19:43)
[2021-05-04] MEDS ORDERED: Potassium Chloride Elixir 20 MEQ/15 ML UDC GTUBE ONE (08:26)
[2021-05-04] MEDS: Fluconazole 400 MG/200 ML 400 MG/200 ML BAG IVPB SCH (09:15)
[2021-05-04] MEDS: Nicotine 21 MG PATCH.TD24 TD SCH (09:17)
[2021-05-04] MEDS: Chlorhexidine Rinse 15 ML MOUTHWASH MM SCH ×2 (09:19→19:43)
[2021-05-04] MEDS ORDERED: Isovue-370 500 ML BOTTLE IVP ONE (10:26)
[2021-05-04] MEDS: Ondansetron 4 MG/2 ML VIAL IVP PRN (12:06)
[2021-05-04] MEDS ORDERED: *HR* HYDROmorphone (PF) 1 MG/ML SYRINGE IVP PRN (15:26)
[2021-05-04] MEDS ORDERED: Prochlorperazine 10 MG/2 ML VIAL IVP PRN (15:45)
[2021-05-04] MEDS: *HR* HYDROmorphone (PF) 1 MG/ML SYRINGE IVP PRN (16:01)
[2021-05-04 19:39] LABS: Influenza A PCR Negative (Negative); Influenza B PCR Negative (Negative); Resp. Syncytial Virus PCR Negative (Negative)
[2021-05-04 19:40] LABS: SARS-CoV-2 by PCR (In House) Negative (Negative)
[2021-05-05] MEDS: *HR* LORazepam 2 MG/ML VIAL IVP SCH ×2 (01:06→06:09)
[2021-05-05] MEDS: Saliva Stimulant 44.3ml BOTTLE PO SCH ×5 (02:23→08:17)
[2021-05-05] MEDS: Ipratropium/Albuterol Neb 3 ML IH SCH ×3 (03:38→08:24)
[2021-05-05 05:28] LABS: Hemoglobin 9.8 g/dL (12.9-16.9); Mean Corpuscular HGB Conc 32.7 g/dL (31.6-35.5); Mean Corpuscular Hemoglobin 30.2 pg (28.0-33.3); Mean Corpuscular Volume 92.6 fL (83.0-100.0); Mean Platelet Volume 9.6 fL (9.4-12.4); Platelet Count 501 K/mcL (140-400); Red Blood Count 3.24 M/mcL (4.19-5.50); Red Cell Distribution Width 14.1 % (11.5-14.5); White Blood Count 12.8 K/mcL (4.3-11.1)
[2021-05-05 05:30] LABS: Alanine Aminotransferase 197 Units/L (7-52); Albumin/Globulin Ratio 0.9 (1.1-2.2); Alkaline Phosphatase 95 Units/L (34-104); Aspartate Amino Transferase 124 Units/L (13-39); BUN/Creatinine Ratio 17 (6-26); Bilirubin,Total 0.4 mg/dL (0.3-1.0); Blood Urea Nitrogen 13 mg/dL (8-23); Calcium 8.6 mg/dL (8.6-10.3); Carbon Dioxide 29 mEq/L (23-29); Chloride 94 mEq/L (98-107); Globulin 3.3 g/dL (2.4-3.5); Glucose 116 mg/dL (70-105); Osmolality,Calculated 273 (280-300); Sodium 131 mEq/L (136-145); Total Protein 6.3 g/dL (6.4-8.9); eGFR For African Americans > 60 (> 60); eGFR For Non-African Americans > 60 (> 60)
[2021-05-05] MEDS: *HR* Enoxaparin 40 MG/0.4 ML SYRINGE SQ SCH (06:09)
[2021-05-05 07:02] VITALS: BP 100/65; PULSE 84; TEMP 98; O2SAT 93
[2021-05-05] MEDS: Ondansetron 4 MG/2 ML VIAL IVP PRN (07:54)
[2021-05-05] MEDS: *HR* HYDROmorphone (PF) 1 MG/ML SYRINGE IVP PRN (07:55)
== END 2021-05-05 09:03 | disposition short-term general hospital (02) | DRG 4 ==
LOC: 3ANU 12:50 → EMEROOARM 12:50 → 3ANU 16:59 → SUATTDRO 04-24 13:57 → 2NNU 04-26 17:29 → 2ANU 05-03 08:37
PROVIDERS: ADMIT Internal Medicine; ATTEND Family Medicine
PROC: ENDOEBX (2021-04-27 17:30)